=== PATIENT | female | born 1980 | race Caucasian/White ===

== ENCOUNTER 2024-04-16 15:58 | Emergency (ER) | payer OTHER, SELFPAY ==
--- NOTE | 2024-04-16 16:09 | PC.NURSE ---
Pt left prior to triage.
== END 2024-04-16 17:10 | disposition left against medical advice (07) ==
PROVIDERS: PCP Nurse Practitioner Family
DX: R11.2 Nausea with vomiting, unspecified (principal)
CPT/HCPCS: 99199